=== PATIENT | male | born 1975 | race American Indian/Alaskan Native ===

== ENCOUNTER 2017-12-19 08:10 | Emergency (ER) | payer OTHER | END 2017-12-19 08:35 | disposition left against medical advice (07) | LOC: DL.ED 08:10 | DX: Z53.21 Procedure and treatment not carried out due to patient leaving prior to being seen by health care provider (principal) ==

== ENCOUNTER 2018-01-30 21:18 | Emergency (ER) | payer OTHER ==
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
[2018-01-30] MEDS ORDERED: Butorphanol 2 MG/ML SDV IM ONE (22:05)
== END 2018-01-30 22:55 | disposition home or self-care (01) ==
LOC: DL.ED 21:18
DX: S02.602A Fracture of unspecified part of body of left mandible, initial encounter for closed fracture (principal); X58.XXXA Exposure to other specified factors, initial encounter
CPT/HCPCS: 70450; 70486; 72125; 96372; 99284; J0595; 99283

== ENCOUNTER 2019-01-13 23:11 | Emergency (ER) | payer OTHER ==
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
[2019-01-13] MEDS ORDERED: traMADol 50 MG Tab PO ONE (23:12)
[2019-01-13 23:39] LABS: ANION GAP 13.1; CHLORIDE,CL 110 mmol/L (101-111); SODIUM,NA 141 mmol/L (135-145)
[2019-01-14] MEDS ORDERED: traMADol 50 MG Tab ONE (01:55)
== END 2019-01-14 02:02 | disposition home or self-care (01) ==
LOC: DL.ED 23:11
DX: S82.831A Other fracture of upper and lower end of right fibula, initial encounter for closed fracture (principal); S00.83XA Contusion of other part of head, initial encounter; F10.129 Alcohol abuse with intoxication, unspecified; Y90.8 Blood alcohol level of 240 mg/100 ml or more; Y04.0XXA Assault by unarmed brawl or fight, initial encounter
CPT/HCPCS: 36415; 70450; 70486; 72125; 73600; 80053; 85025; 99284; A9270; G0480

== ENCOUNTER 2019-08-27 09:37 | Emergency (ER) | payer OTHER, MEDICAID ==
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
== END 2019-08-27 10:54 ==
LOC: DL.ED 09:37
DX: S02.842A Fracture of lateral orbital wall, left side, initial encounter for closed fracture (principal); S10.93XA Contusion of unspecified part of neck, initial encounter; F17.210 Nicotine dependence, cigarettes, uncomplicated; Y04.8XXA Assault by other bodily force, initial encounter
CPT/HCPCS: 70450; 70486; 99284-25

== ENCOUNTER 2021-01-23 11:13 | Emergency (ER) | payer MEDICAID, OTHER ==
--- NOTE | 2021-01-23 11:41 | EDM.PDOC ---
ED HPI GENERAL MEDICAL PROBLEM - General Chief Complaint: Skin Complaint Stated Complaint: RASH ON STOMACH Time Seen by Provider: 01/23/21 11:40 Source of Information: Reports: Patient, RN, RN Notes Reviewed History Limitations: Reports: No Limitations - History of Present Illness INITIAL COMMENTS - FREE TEXT/NARRATIVE: Pt presents to ER from home by POV with c/o exposure to poison oak on the abdomen and below his eyes three days ago. Pt states the abdomen has now developed little purulent bumps and the area in and around his naval has purulent drainage. Pt claims that redness has spread all across his abdomen. Pt states the skin of the abdomen is both painful with burning, and itches very bad. He denies fever or chills. Onset: Gradual Duration: Day(s): (3), Getting Worse Location: Reports: Face, Abdomen Quality: Reports: Burning, Other (Itches) Severity: Moderate Improves with: Reports: None Worsens with: Reports: None Associated Symptoms: Reports: No Other Symptoms Abdomen Pain Score (Numeric/FACES): 2 - Related Data Allergies Allergy/AdvReac Type Severity Reaction Status Date / Time No Known Allergies Allergy Verified 01/23/21 11:19 Home Meds: Home Meds . [No Known Home Meds] 04/15/14 [History] Past Medical History - Past Health History Medical/Surgical History: Denies Medical/Surgical History HEENT History: Reports: None Cardiovascular History: Reports: None Respiratory History: Reports: None Gastrointestinal History: Reports: None Genitourinary History: Reports: None Musculoskeletal History: Reports: Fracture Neurological History: Reports: None Psychiatric History: Reports: Addiction Endocrine/Metabolic History: Reports: None Hematologic History: Reports: None Immunologic History: Reports: None Oncologic (Cancer) History: Reports: None Dermatologic History: Reports: None - Infectious Disease History Infectious Disease History: Reports: None - Past Surgical History Musculoskeletal Surgical History: Reports: Other (See Below) Other Musculoskeletal Surgeries/Procedures:: jaw plate x2 Social & Family History - Family History Family Medical History: No Pertinent Family History - Tobacco Use Tobacco Use Status *Q: Current Every Day Tobacco User Years of Tobacco use: 10 Packs/Tins Daily: 1 - Caffeine Use Caffeine Use: Reports: Coffee, Energy Drinks, Soda, Tea - Alcohol Use Days Per Week of Alcohol Use: 7 Number of Drinks Per Day: 12 Total Drinks Per Week: 84 - Recreational Drug Use Recreational Drug Use: Yes Recreational Drug Type: Reports: Marijuana/Hashish - Living Situation & Occupation Living situation: Reports: with Family ED ROS GENERAL - Review of Systems Review Of Systems: Comprehensive ROS is negative, except as noted in HPI. ED EXAM, SKIN/RASH Exam: See Below Exam Limited By: No Limitations General Appearance: Alert, No Apparent Distress Eye Exam: Bilateral Eye: EOMI, Periorbital Changes (B/L infraorbital erythema, no drainage or lesions), PERRL Ears: Normal External Exam Nose: Normal Inspection Throat/Mouth: Normal Inspection Head: Atraumatic, Normocephalic Neck: Normal Inspection, Supple, Non-Tender, Full Range of Motion Respiratory/Chest: No Respiratory Distress, Lungs Clear, Normal Breath Sounds, No Accessory Muscle Use, Chest Non-Tender Cardiovascular: Regular Rate, Rhythm GI/Abdominal: Normal Bowel Sounds, Soft, No Distention. No: Guarding, Rigid, Rebound Back Exam: Normal Inspection Extremities: Normal Inspection, Normal Range of Motion, Non-Tender, No Pedal Edema, Normal Capillary Refill Neurological: Alert, Oriented, No Motor/Sensory Deficits Psychiatric: Normal Affect, Normal Mood Location, Skin: Abdomen Characteristics: Confluent, Vesicular (pustular heads), Erythematous Associated features: Warmth, Tenderness, Crusting (umbilicus), Weeping (umbilicus), Rough Course - Vital Signs Last Recorded V/S: Last Vital Signs Temp 97.7 F 01/23/21 11:19 Pulse 90 01/23/21 11:19 Resp 20 01/23/21 11:19 BP 122/73 01/23/21 11:19 Pulse Ox 98 01/23/21 11:19 - Orders/Labs/Meds Orders: Active Orders 24 hr Category Date Time Status Peripheral IV Care [RC] . DIRECTED Care 01/23/21 11:44 Active CULTURE WOUND [RM] Stat Lab 01/23/21 11:40 Received Sodium Chloride 0.9% [Saline Flush] Med 01/23/21 11:43 Active 10 ml FLUSH ASDIRECTED PRN Vancomycin 1 gm Med 01/23/21 11:43 Active Sodium Chloride 0.9% [Normal Saline (AdvBag)] 250 ml IV ONETIME Peripheral IV Insertion Adult [OM.PC] Stat Oth 01/23/21 11:43 Ordered Medication Orders Vancomycin HCl 1 gm/ Sodium (Chloride) 250 mls @ 167 mls/hr IV ONETIME ONE Stop: 01/23/21 13:12 Last Admin: 01/23/21 12:05 Dose: 167 mls/hr Documented by: GREER Sodium Chloride (Sodium Chloride 0.9% 10 Ml Syringe) 10 ml FLUSH ASDIRECTED PRN PRN Reason: Keep Vein Open Last Admin: 01/23/21 12:04 Dose: 10 ml Documented by: GREER Labs: Laboratory Tests 01/23/21 01/23/21 Range/Units 11:51 11:51 WBC 13.1 H (5.0-10.0) 10^3/uL RBC 5.03 (4.6-6.2) 10^6/uL Hgb 15.3 D (14.0-18.0) g/dL Hct 44.0 (40.0-54.0) % MCV 87.5 (80-100) fL MCH 30.4 (27.0-34.0) pg MCHC 34.8 (33.0-35.0) g/dL Plt Count 232 (150-450) 10^3/uL Neut % (Auto) 81.9 H (42.2-75.2) % Lymph % (Auto) 7.4 L (20.5-50.1) % [place] % (Auto) 6.3 (2-8) % Eos % (Auto) 4.2 H (1.0-3.0) % Baso % (Auto) 0.2 (0.0-1.0) % C-Reactive Protein 1.8 H (0.0-0.9) mg/dL Meds: Medications Generic Name Dose Route Start Last Admin Trade Name Freq PRN Reason Stop Dose Admin Vancomycin HCl 1 gm/ Sodium 250 mls @ 167 mls/hr 01/23/21 11:43 01/23/21 12:05 Chloride IV 01/23/21 13:12 167 mls/hr ONETIME ONE Administration Sodium Chloride 10 ml 01/23/21 11:43 01/23/21 12:04 Sodium Chloride 0.9% 10 Ml Syringe FLUSH 10 ml ASDIRECTED PRN Administration Keep Vein Open Discontinued Medications Generic Name Dose Route Start Last Admin Trade Name Freq PRN Reason Stop Dose Admin Diphenhydramine HCl 25 mg 01/23/21 11:44 01/23/21 12:04 Diphenhydramine 50 Mg/Ml Sdv IVPUSH 01/23/21 11:45 25 mg ONETIME ONE Administration Methylprednisolone Sodium Succinate 125 mg 01/23/21 11:44 01/23/21 12:04 Methylprednisolone Sodium Succinate 125 Mg/2 Ml Sdv IVPUSH 01/23/21 11:45 125 mg ONETIME ONE Administration Departure - Departure Time of Disposition: 12:58 Disposition: Home, Self-Care 01 Condition: Good Clinical Impression: Poison oak dermatitis, Pustular folliculitis, Abdominal wall cellulitis - Discharge Information *PRESCRIPTION DRUG MONITORING PROGRAM REVIEWED*: Not Applicable *COPY OF PRESCRIPTION DRUG MONITORING REPORT IN PATIENT JAG: Not Applicable Instructions: Poison [place] Dermatitis, [id number], Folliculitis Forms: ED Department Discharge Additional Instructions: Rx: Clindamycin 300mg Rx: Doxycycline 100mg Rx: Bactroban Ointment 2% Rx: Prednisone 20mg May use over the counter Benadryl 25mg one or two tablets by mouth every 6 hours as needed for rash and itching. Follow up in clinic next week for recheck. Sepsis Event Note (ED) - Evaluation Sepsis Screening Result: No Definite Risk - Focused Exam Vital Signs: Vital Signs Temp Pulse Resp BP Pulse Ox 01/23/21 11:19 97.7 F 90 20 122/73 98 - My Orders Last 24 Hours: My Active Orders 01/23/21 11:40 CULTURE WOUND [RM] Stat 01/23/21 11:43 Sodium Chloride 0.9% [Saline Flush] 10 ml FLUSH ASDIRECTED PRN Vancomycin 1 gm Sodium Chloride 0.9% [Normal Saline (AdvBag)] 250 ml IV ONETIME Peripheral IV Insertion Adult [OM.PC] Stat 01/23/21 11:44 Peripheral IV Care [RC] . DIRECTED - Assessment/Plan Last 24 Hours: My Active Orders 01/23/21 11:40 CULTURE WOUND [RM] Stat 01/23/21 11:43 Sodium Chloride 0.9% [Saline Flush] 10 ml FLUSH ASDIRECTED PRN Vancomycin 1 gm Sodium Chloride 0.9% [Normal Saline (AdvBag)] 250 ml IV ONETIME Peripheral IV Insertion Adult [OM.PC] Stat 01/23/21 11:44 Peripheral IV Care [RC] . DIRECTED
[2021-01-23] MEDS ORDERED: Sodium Chloride 0.9% 10 ML Syringe FLUSH PRN (11:43)
[2021-01-23] MEDS ORDERED: methylPREDNISolone Sodium Succinate 125 MG/2 ML SDV IVPUSH ONE (11:44)
[2021-01-23] MEDS ORDERED: diphenhydrAMINE 50 MG/ML SDV IVPUSH ONE (11:44)
== END 2021-01-23 13:46 | disposition home or self-care (01) ==
LOC: DL.ED 11:13
DX: L03.311 Cellulitis of abdominal wall (principal); L73.9 Follicular disorder, unspecified; L23.7 Allergic contact dermatitis due to plants, except food; Z72.0 Tobacco use
CPT/HCPCS: 36415; 85025; 86140; 87070; 87077; 87186; 96365; 96366; 96375; 99283; 99283-25; J1200; J2930; J3370; J7050

== ENCOUNTER 2022-06-13 13:15 | Emergency (ER) | payer MEDICAID | END 2022-06-13 14:45 | disposition home or self-care (01) | LOC: DL.ED 13:15 | DX: L50.9 Urticaria, unspecified (principal); L08.9 Local infection of the skin and subcutaneous tissue, unspecified; Z69.11 Encounter for mental health services for victim of spousal or partner abuse; Z72.0 Tobacco use | CPT/HCPCS: 99282 ==

== ENCOUNTER 2023-01-12 13:43 | Emergency (ER) | payer MEDICAID ==
[2023-01-12] MEDS ORDERED: methylPREDNISolone Sodium Succinate 40 MG/1 ML SDV IM ONE (14:47)
== END 2023-01-12 14:56 | disposition home or self-care (01) ==
LOC: DL.ED 13:43
DX: L25.5 Unspecified contact dermatitis due to plants, except food (principal); F17.210 Nicotine dependence, cigarettes, uncomplicated
CPT/HCPCS: 96372; 99282; J2920

== ENCOUNTER 2025-02-10 16:32 | Emergency (ER) | payer MEDICAID, OTHER | END 2025-02-10 18:37 | disposition home or self-care (01) | LOC: DL.ED 16:32 | DX: M25.562 Pain in left knee (principal) | CPT/HCPCS: 73562-LT; 99283 ==